=== PATIENT | female | born 1980 | race Caucasian/White ===

== ENCOUNTER 2023-05-19 11:27 | Emergency (ER) | payer BC ==
[2023-05-19] MEDS ORDERED: Ketorolac 30 MG/ML SDV IVPUSH ONE (11:49)
[2023-05-19] MEDS ORDERED: Sodium Chloride 0.9% 1,000 ML IV ONE (11:49)
[2023-05-19] MEDS ORDERED: Ondansetron 4 MG/2 ML SDV IVPUSH ONE (11:49)
[2023-05-19] MEDS ORDERED: diphenhydrAMINE 50 MG/ML SDV IVPUSH ONE (12:00)
[2023-05-19] MEDS ORDERED: diphenhydrAMINE 50 MG/ML SDV ONE (12:39)
[2023-05-19] MEDS ORDERED: Ondansetron 4 MG Tab.DIS ONE (13:00)
== END 2023-05-19 13:20 | disposition home or self-care (01) ==
LOC: LB.ED 11:27
DX: G43.909 Migraine, unspecified, not intractable, without status migrainosus (principal); Z79.899 Other long term (current) drug therapy; Z91.048 Other nonmedicinal substance allergy status
CPT/HCPCS: 96361; 96374; 96375; 99283; 99284; J1200; J1885; J2405; J7030; Q0162